=== PATIENT | male | born 1985 | race Caucasian/White ===

== ENCOUNTER 2017-12-23 17:24 | Emergency (ER) | payer BC ==
--- NOTE | 2017-12-23 17:41 | EDM.PDOCBH ---
ED HPI GENERAL MEDICAL PROBLEM - General Chief Complaint: Behavioral/Psych Stated Complaint: ANXIETY/CONFUSION Time Seen by Provider: 12/23/17 17:41 - History of Present Illness INITIAL COMMENTS - FREE TEXT/NARRATIVE: 32-year-old male presents emergency room with worsening anxiety. The patient ran out of his Effexor couple of days ago and has not been able to get this filled. His anxiety is getting worse. The patient normally takes Effexor 225 mg daily of the XR. He has no other complaints at this time - Related Data Allergies Allergy/AdvReac Type Severity Reaction Status Date / Time No Known Allergies Allergy Verified 12/23/17 17:32 Home Meds: Home Meds Gabapentin [Neurontin] 600 mg PO QID 12/23/17 [History] Venlafaxine [Effexor XR] 225 mg PO DAILY 12/23/17 [History] Past Medical History Respiratory History: Reports: Asthma Psychiatric History: Reports: Anxiety, Depression Social & Family History - Tobacco Use Smoking Status *Q: Current Every Day Smoker Years of Tobacco use: 13 Packs/Tins Daily: 0.4 - Recreational Drug Use Recreational Drug Use: No ED ROS GENERAL - Review of Systems Review Of Systems: See Below Constitutional: Reports: No Symptoms. Denies: Fever, Chills Respiratory: Reports: No Symptoms Cardiovascular: Reports: No Symptoms GI/Abdominal: Reports: No Symptoms ED EXAM, BEHAVIORAL HEALTH - Physical Exam Exam: See Below Exam Limited By: No Limitations General Appearance: Alert, No Apparent Distress Respiratory/Chest: No Respiratory Distress, Lungs Clear, Normal Breath Sounds Cardiovascular: Regular Rate, Rhythm, No Edema, No Murmur Psychiatric: Alert, Normal Cognition, Oriented, Other (He is a little anxious otherwise doing okay). No: Suicidal Plan, Suicidal Thoughts COURSE, BEHAVIORAL HEALTH COMP - Course Vital Signs: Last Vital Signs Temp 36.7 C 12/23/17 17:34 Pulse 104 H 12/23/17 17:34 Resp 19 12/23/17 17:34 BP 179/120 H 12/23/17 17:34 Pulse Ox 97 12/23/17 17:34 Departure - Departure Time of Disposition: 17:52 Disposition: Home, Self-Care 01 Clinical Impression: Depression, Anxiety - Discharge Information Referrals: PCP,Not In Area [Primary Care Provider] - Forms: ED Department Discharge Additional Instructions: Handwritten instructions given have refilled his Effexor for 10 days he has follow-up with his regular doctor early this next week
== END 2017-12-23 17:50 | disposition home or self-care (01) ==
LOC: JD.ED 17:24
DX: F41.9 Anxiety disorder, unspecified (principal); F32.9 Major depressive disorder, single episode, unspecified; J45.909 Unspecified asthma, uncomplicated; F17.210 Nicotine dependence, cigarettes, uncomplicated; Z79.899 Other long term (current) drug therapy
CPT/HCPCS: 99283

== ENCOUNTER 2018-02-10 07:54 | Emergency (ER) | payer BC ==
[2018-02-10] MEDS ORDERED: Aspirin 81 MG Tab.Chew PO ONE (08:15)
--- NOTE | 2018-02-10 08:35 | EDM.PDOCBH ---
ED HPI GENERAL MEDICAL PROBLEM - General Chief Complaint: Behavioral/Psych Stated Complaint: Panic Attack Time Seen by Provider: 02/10/18 08:06 Source of Information: Reports: Patient History Limitations: Reports: No Limitations - History of Present Illness INITIAL COMMENTS - FREE TEXT/NARRATIVE: The patient presents with chest pain. This started last night at about 2am. He was at work and he had an anxiety attack. He has a history of anxiety and is on medications. He developed first a sharp pain in his left chest that radiated to his left arm and now he has pressure. The pain comes and goes. He has no shortness of breath with it. He did get the chills and he was nauseated. He has had chest pain before with anxiety attacks but this is lasting longer. He has no history of heart problems and no history of hypertension, high cholesterol or diabetes. He does smoke. Onset: Sudden Duration: Hour(s): (2am) Location: Reports: Chest Quality: Reports: Pressure Severity: Mild Improves with: Reports: None Worsens with: Reports: None Context: Reports: Activity (He was at work when this started) Associated Symptoms: Reports: Chest Pain, Nausea/Vomiting. Denies: Cough, Fever /Chills, Headaches, Shortness of Breath Middle Chest Pain Score (Numeric/FACES): 5 - Related Data Allergies Allergy/AdvReac Type Severity Reaction Status Date / Time No Known Allergies Allergy Verified 02/10/18 08:00 Home Meds: Home Meds Gabapentin [Neurontin] 600 mg PO QID 12/23/17 [History] Venlafaxine [Effexor XR] 225 mg PO DAILY 12/23/17 [History] Past Medical History Respiratory History: Reports: Asthma Psychiatric History: Reports: Anxiety, Depression ED ROS GENERAL - Review of Systems Review Of Systems: See Below Constitutional: Reports: No Symptoms HEENT: Reports: No Symptoms Respiratory: Reports: No Symptoms Cardiovascular: Reports: Chest Pain Endocrine: Reports: No Symptoms GI/Abdominal: Reports: No Symptoms : Reports: No Symptoms Musculoskeletal: Reports: No Symptoms ED EXAM, BEHAVIORAL HEALTH - Physical Exam Exam: See Below Exam Limited By: No Limitations General Appearance: Alert, No Apparent Distress Ears: Normal External Exam Nose: Normal Inspection Head: Atraumatic, Normocephalic Neck: Normal Inspection Respiratory/Chest: No Respiratory Distress, Lungs Clear, Normal Breath Sounds Cardiovascular: Regular Rate, Rhythm, No Edema, No Murmur GI/Abdominal: Soft, Non-Tender, No Organomegaly, No Mass Extremities: Normal Inspection Neurological: Alert, No Motor/Sensory Deficits, Oriented x 3 EKG INTERPRETATION EKG Date: 02/10/18 Time: 08:23 Rhythm: NSR Rate (Beats/Min): 90 Gardner: Normal P-Wave: Present QRS: Normal ST-T: Elevated (Normal early repol) COURSE, BEHAVIORAL HEALTH COMP - Course Vital Signs: Last Vital Signs Temp 98 F 02/10/18 08:02 Pulse 97 02/10/18 08:02 Resp 16 02/10/18 08:02 BP 156/101 H 02/10/18 08:02 Pulse Ox 99 02/10/18 08:02 Orders, Labs, Meds: Active Orders 24 hr Category Date Time Status Cardiac Monitoring [RC] . DIRECTED Care 02/10/18 08:15 Active EKG Documentation Completion [RC] STAT Care 02/10/18 08:15 Active Chest 2V [CR] Stat Exams 02/10/18 08:16 Taken Laboratory Tests 02/10/18 02/10/18 02/10/18 Range/Units 08:34 08:34 08:34 WBC 9.83 H (4.23-9.07) K/mm3 RBC 4.82 (4.63-6.08) M/mm3 Hgb 16.0 (13.7-17.5) gm/L Hct 45.5 (40.1-51.0) % MCV 94.4 H (79.0-92.2) fl MCH 33.2 H (25.7-32.2) pg MCHC 35.2 (32.2-35.5) g/dl RDW Std Deviation 42.4 (35.1-43.9) fL Plt Count 257 (163-337) K/mm3 MPV 8.6 L (9.4-12.3) fl Neut % (Auto) 76.8 H (34.0-67.9) % Lymph % (Auto) 16.5 L (21.8-53.1) % Dickey % (Auto) 5.3 (5.3-12.2) % Eos % (Auto) 1.0 (0.8-7.0) Baso % (Auto) 0.3 (0.1-1.2) % Neut # (Auto) 7.55 H (1.78-5.38) K/mm3 Lymph # (Auto) 1.62 (1.32-3.57) K/mm3 Dickey # (Auto) 0.52 (0.30-0.82) K/mm3 Eos # (Auto) 0.10 (0.04-0.54) K/mm3 Baso # (Auto) 0.03 (0.01-0.08) K/mm3 D-Dimer, Quantitative 0.34 (0.19-0.50) mg/L Sodium 139 (136-145) mEq/L Potassium 4.4 (3.5-5.1) mEq/L Chloride 102 (98-107) mEq/L Carbon Dioxide 26 (21-32) mEq/L Anion Gap 15.4 H (5-15) BUN 12 (7-18) mg/dL Creatinine 1.0 (0.7-1.3) mg/dL Est Cr Clr Drug Dosing 115.32 mL/min Estimated GFR (MDRD) > 60 (>60) mL/min BUN/Creatinine Ratio 12.0 L (14-18) Glucose 105 (74-106) mg/dL Calcium 9.0 (8.5-10.1) mg/dL Total Bilirubin 0.7 (0.2-1.0) mg/dL AST 141 H (15-37) U/L ALT 201 H (16-63) U/L Alkaline Phosphatase 77 (46-116) U/L Troponin I < 0.017 (0.00-0.056) ng/mL Total Protein 8.3 H (6.4-8.2) g/dl Albumin 4.0 (3.4-5.0) g/dl Globulin 4.3 gm/dL Albumin/Globulin Ratio 0.9 L (1-2) Medications Discontinued Medications Generic Name Dose Route Start Last Admin Trade Name Freq PRN Reason Stop Dose Admin Aspirin 324 mg 02/10/18 08:15 18 08:20 Aspirin PO 02/10/18 08:16 324 mg ONETIME ONE Administration Re-Assessment/Re-Exam: I ordered an EKG, CXR, labs and aspirin. His EKG shows a NSR with normal early repol and no acute changes. 0922: His CXR looks good. His WBC was elevated at 9.83. His D-dimer was negative. His anion gap was slightly elevated at 15.4. His AST was elevated at 141. His ALT was elevated at 201. His troponin is negative. The patient says he does drink alcohol 3 to 4 days per week and a couple days ago he did "hit it pretty hard." I will have him recheck his liver enzymes in a couple weeks. Departure - Departure Time of Disposition: 09:30 Disposition: Home, Self-Care 01 Condition: Good Clinical Impression: Anxiety, Atypical chest pain - Discharge Information *PRESCRIPTION DRUG MONITORING PROGRAM REVIEWED*: Not Applicable *COPY OF PRESCRIPTION DRUG MONITORING REPORT IN PATIENT [place]ET[place]: Not Applicable Referrals: PCP,None [Primary Care Provider] - Toshia Wagner PA-C [Physician Saxophone Teacher] - 1 Week Forms: ED Department Discharge Additional Instructions: Take your medication as prescribed. Drink plenty of fluids daily. Try to get enough sleep daily. You liver enzymes were up slightly. Please have them rechecked in 2 week. Please return if you are worse. - My Orders Last 24 Hours: My Active Orders 02/10/18 08:15 Cardiac Monitoring [RC] . DIRECTED EKG Documentation Completion [RC] STAT 02/10/18 08:16 Chest 2V [CR] Stat - Assessment/Plan Last 24 Hours: My Active Orders 02/10/18 08:15 Cardiac Monitoring [RC] . DIRECTED EKG Documentation Completion [RC] STAT 02/10/18 08:16 Chest 2V [CR] Stat
--- NOTE | 2018-02-12 08:37 | CR ---
Chest: Two views of the chest were obtained. Comparison: No prior chest x-ray. Heart size and mediastinum are normal. Lungs are clear without acute parenchymal change. Bony structures are unremarkable. Impression: 1. Nothing acute is seen on two-view chest x-ray. Diagnostic code #1
== END 2018-02-10 09:34 | disposition home or self-care (01) ==
LOC: JD.ED 07:54
DX: R07.89 Other chest pain (principal); F41.9 Anxiety disorder, unspecified; F17.210 Nicotine dependence, cigarettes, uncomplicated
CPT/HCPCS: 36415; 71046; 80053; 84484; 85025; 85379; 93005; 99285; A9270; 93010; 99284-25